=== PATIENT | male | born 1950 | race Caucasian/White ===

== ENCOUNTER → 2019-01-12 10:04 | Outpatient (CLI) | payer MEDICARE, SELFPAY ==
[2015-05-27 15:19] VITALS: BMI 35.8
[2019-01-12 11:41] LABS: BNP,B-Type NATRIURETIC PEPTIDE 27.7 pg/mL (0-100)
== END ==
PROVIDERS: Family Provider Family Medicine; PCP Family Medicine; Referring Provider Internal Medicine Pulmonary Disease; Visit Provider Internal Medicine Pulmonary Disease
DX: I27.20 Pulmonary hypertension, unspecified (principal)
CPT/HCPCS: 36415; 83880

== ENCOUNTER → 2019-05-12 14:57 | Outpatient (CLI) | payer MEDICARE, SELFPAY ==
[2015-05-27 15:19] VITALS: BMI 35.8
[2019-05-12 18:16] LABS: AST(SGOT) 20 U/L (15-37); Alanine Aminotransfer ALT/SGPT 28 U/L (16-61); Albumin, Serum 3.9 g/dL (3.2-5.0); Alkaline Phosphatase 116 U/L (45-117); Bilirubin, Direct 0.32 mg/dL (0.00-0.30); GGTP 19 U/L (15-85); Globulin 3.5 g/dL (2.2-4.2); Protein, Total 7.4 g/dL (6.4-8.2)
[2019-05-13 11:14] LABS: Hepatitis B Surface Antigen Non-Reactive (Nonreactive); Hepatitis C Antibody Non-Reactive (Nonreactive)
[2019-05-14 15:19] LABS: AFP, Tumor Marker 1.5 ng/mL (0.0-8.3); Anti-Smooth Muscle ABS 8 Units (0-19)
== END ==
PROVIDERS: PCP Student in an Organized Health Care Education/Training Program; Referring Provider Internal Medicine Gastroenterology; Visit Provider Internal Medicine Gastroenterology
DX: K75.9 Inflammatory liver disease, unspecified (principal); K76.0 Fatty (change of) liver, not elsewhere classified; E80.7 Disorder of bilirubin metabolism, unspecified
CPT/HCPCS: 36415; 80076; 82105; 82977; 83516; 86803; 87340

== ENCOUNTER → 2020-06-01 09:57 | Outpatient (CLI) | payer MEDICARE, SELFPAY ==
[2015-05-27 15:19] VITALS: BMI 35.8
[2020-06-01 11:09] LABS: BNP,B-Type NATRIURETIC PEPTIDE 62.5 pg/mL (0-100)
== END ==
PROVIDERS: PCP Student in an Organized Health Care Education/Training Program; Referring Provider Internal Medicine Pulmonary Disease; Visit Provider Internal Medicine Pulmonary Disease
DX: I27.0 Primary pulmonary hypertension (principal); G47.33 Obstructive sleep apnea (adult) (pediatric); I48.91 Unspecified atrial fibrillation
CPT/HCPCS: 36415; 83880

== ENCOUNTER 2021-05-30 09:22 | Outpatient (CLI) | payer MEDICARE, SELFPAY ==
[2021-05-30 10:48] LABS: BNP,B-Type NATRIURETIC PEPTIDE 52.4 pg/mL (0-100)
== END 2021-05-30 23:59 | disposition home or self-care (01) ==
LOC: LAB 09:26
PROVIDERS: PCP Student in an Organized Health Care Education/Training Program; Referring Provider Internal Medicine Pulmonary Disease; Visit Provider Internal Medicine Pulmonary Disease
DX: I27.20 Pulmonary hypertension, unspecified (principal); I48.91 Unspecified atrial fibrillation; Z79.899 Other long term (current) drug therapy
CPT/HCPCS: 36415; 83880

== ENCOUNTER 2021-11-27 09:08 | Outpatient (CLI) | payer MEDICARE, SELFPAY | END 2021-11-27 23:59 | disposition home or self-care (01) | PROVIDERS: PCP Student in an Organized Health Care Education/Training Program; Visit Provider Internal Medicine Pulmonary Disease | DX: I27.0 Primary pulmonary hypertension (principal); R06.00 Dyspnea, unspecified; Z79.899 Other long term (current) drug therapy | CPT/HCPCS: 36415; 83880 ==

== ENCOUNTER → 2022-02-20 | Outpatient (CLI) | payer MEDICARE, SELFPAY | END | disposition home or self-care (01) | LOC: LAB 09:24 | PROVIDERS: PCP Student in an Organized Health Care Education/Training Program; Referring Provider Internal Medicine Pulmonary Disease; Visit Provider Internal Medicine Pulmonary Disease | DX: R06.00 Dyspnea, unspecified (principal); E27.0 Other adrenocortical overactivity; J12.89 Other viral pneumonia | CPT/HCPCS: 36415; 83880 ==

== ENCOUNTER 2022-12-05 14:30 | Outpatient (RCR) | payer MEDICARE, SELFPAY ==
[2022-11-28 15:34] VITALS: BP 95/47; PULSE 73; RESP 16; TEMP 36.1; BMI 25.7
--- NOTE | 2022-11-29 16:43 | HP.PCM_ITS ---
History of Present Illness Date of Service: 11/28/22 Chief Complaint: Pressure injury R buttock History of Wound: Patient is a 72 y/o male who presents to the wound healing center today for evaluation and management of an area of pressure injury on his R buttock. He is diagnosed with Parkinson's and Lewy body dementia, he is accompanied to the appointment by his who helps with his care and to supplement his history. He was referred by his PCP who first noticed the area of concern at an office visit on 11/20. Patient reports the area is sometimes a little sore, but overall does not bother him too much. He has never had an pressure wounds before. He does spend much of his day sitting in a recliner, and he sleeps in the recliner as well. He also has incontinence, he wears incontinence briefs to manage this. They have not been treating the area with anything at home, just doing their best to keep it clean. He does not smoke. He does not have diabetes. [facility]LY [facility] Medical History Cerumen impaction Colon polyp Constipation Dizziness Elevated bilirubin Fatigue Leukocytosis Mediastinal lymphadenopathy Pulmonary emboli SOB (shortness of breath) Supratherapeutic INR Unexplained weight loss UTI (urinary tract infection) Home Medications pantoprazole 40 mg tablet,delayed release 40 mg PO DAILY 02/26/13 [History Last Taken 05/10/14 06:30] torsemide 10 mg tablet 10 mg PO QHS 02/26/13 [History Last Taken 05/09/14 11:00] amiodarone 200 mg tablet 200 mg PO DAILY 07/01/22 [History Last Taken Unknown] calcitriol 0.25 mcg capsule 0.25 mcg PO DAILY 07/01/22 [History Last Taken Unknown] carbidopa 25 mg-levodopa 100 mg tablet 2 tab PO TID 07/01/22 [History Last Taken Unknown] cholecalciferol (vitamin D3) 50 mcg (2,000 unit) capsule 50 mcg PO DAILY 0 07/01/22 [History Last Taken Unknown] ferrous sulfate 325 mg (65 mg iron) tablet 325 mg PO DAILY 07/01/22 [History Last Taken Unknown] fluoxetine 10 mg capsule 10 mg PO DAILY 07/01/22 [History Last Taken Unknown] fluoxetine 20 mg capsule 20 mg PO DAILY 07/01/22 [History Last Taken Unknown] memantine 5 mg tablet 10 mg PO BID 07/01/22 [History Last Taken Unknown] pimavanserin 34 mg capsule 34 mg PO DAILY 07/01/22 [History Last Taken Unknown] potassium chloride 10 mEq capsule,extended release 10 meq PO DAILY 07/01/22 [History Last Taken Unknown] pravastatin 40 mg tablet 40 mg PO DAILY 07/01/22 [History Last Taken Unknown] spironolactone 25 mg tablet 12.5 mg PO DAILY 07/01/22 [History Last Taken Unknown] tamsulosin 0.4 mg capsule 0.8 mg PO DAILY 07/01/22 [History Last Taken Unknown] topiramate 50 mg capsule,extended release 24 hr 25 mg PO DAILY 07/01/22 [History Last Taken Unknown] treprostinil diolamine 0.25 mg tablet,extended release 0.25 mg PO Q12H 07/01/22 [History Last Taken Unknown] warfarin 6 mg tablet (Jantoven) 4 mg PO DAILY 07/01/22 [History Last Taken Unknown] treprostinil diolamine 1 mg tablet,extended release (Orenitram) 3 mg PO TID 11/28/22 [History Last Taken Unknown] Allergy/AdvReac Type Severity Reaction Status Date / Time No Known Allergies Allergy Verified 11/28/22 15:46 Family History Mother Brain tumor Cancer Heart disease Thyroid disorder Sister Breast cancer Heart disease Father Heart disease Brother Heart disease Surgical History History of prostate surgery Hx of arthrodesis Hx of colonoscopy Hx of cystoscopy Hx of knee surgery Social History Smoking Status: Never smoker alcohol intake: never substance use type: does not use Vital Signs Vital Signs Vital Signs: Weight Weight: 200 lb Body Mass Index (BMI) 25.7 Physical Exam Const alert and no apparent distress Orientation / Consciousness: oriented to person and oriented to place HEENT normocephalic, head/scalp atraumatic, hearing grossly normal bilaterally, external ears normal and external nose normal Eyes EOMs intact bilaterally General Eye: normal appearance of both eyes Resp normal respiratory effort and no use of accessory muscles Effort and Inspection: able to speak in complete sentences; Negative for respiratory distress, labored, grunting, stridor or audible wheezes Cardio Rate: regular rate Rhythm: abnormal rhythm irregularly irregular Extremity no clubbing, cyanosis or edema Skin Wounds: wounds noted Wound Narrative: Small pressure ulceration to the R buttock limited to breakdown of the skin, very superficial. Some surrounding nonblanchable erythema, but no excessive warmth, tenderness, drainage, foul odor, fluctuance, induration. Psych Appearance: grossly normal Attitude: calm and engaged Activity / Motor Behavior: appropriate eye contact Speech: normal speech Mood & Affect: euthymic mood Debridement Note Debridement Note No debridement was completed: No debridement was completed today Post-Debridement Measurements and Additional Note: Post-Debridement Measurements/Treatment - Nurse 1 - General Ulcer Assessment Start: 11/28/22 15:31 Freq: Status: Active Protocol: ANNIE Activity Type Activity Date Activity User E-sign Co-sign Detail Recorded Client Recorded Date Recorded By Document 11/28/22 15:34 [facility] [id number] 11/28/22 15:41 [facility] 11/28/22 15:34 - Today's Visit Information Type of service Initial Visit Arrival Mode Ambulatory, Walker Transfer Assistance None Accompanied by Patient Identification Verified (Name & Yes ) Patient Requires Transmission-Based No Precautions Height and Weight Height 6 ft 2 in Weight 200 lb Weight in Pounds 200.0 lbs Weight Measurement Method Estimated by Patient Body Mass Index (BMI) 25.7 BMI Classification Overweight BSA - Karen 2.17 Vital Signs Temperature (97.8 F-99.1 F) 96.9 F L Temperature Source Temporal Pulse Rate (60-100) 73 Pulse Location Monitor Respiratory Rate (12-18) 16 Respiratory rate source Observation Oxygen Delivery Method Room Air Blood Pressure (90/60-120/80) 95/47 L Blood Pressure Mean 63 Source Monitor Position Sitting Blood Pressure Location Left Arm History Since Last Visit- (Skip if this is Patient's initial visit) Left Footwear Regular Shoe Right Footwear Regular Shoe Pain Scale: 0-10 Numeric Is Patient Pain Free? 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 Able to Read Yes Able to Write Yes Communication Tools None Right Hearing Abillity Normal Left Hearing Abillity Normal Visual Assistive Devices Glasses Teaching Assessment Preferences Verbal,Written, Audio/Visual, Demonstration Barriers to Learning None Readiness To Learn Excellent Willingness to Engage in Self Management High Activies Readiness to Engage in Self Management High Activities Anxiety Level Calm Cooperation Cooperative Perception Coherent Interest in Health Problem Asks Questions Education Importance Acknowledges Need Does Patient Smoke tobacco or other No substances Smoking Status Never smoker Is Patient Diabetic No Functional Assessment Recent Decline in Ability to Perform Denies Any Declines Culture/Faith/Marine Diesel Technician Cultural/Faith Needs that may affect No Treatment Plan Teaching: Wound Center *Welcome to the Wound Center -Person Taught Patient, Significant Other -Teaching Method Discussion -Response to teaching Verbalize understanding Welcome to the Wound Care Center Ukrainian NATTY - Nurse 1 - General Ulcer Measurement Start: 11/28/22 15:31 Freq: Status: Active Protocol: Activity Type Activity Date Activity User E-sign Co-sign Detail Recorded Client Recorded Date Recorded By Document 11/28/22 15:34 [facility] [id number] 11/28/22 15:41 [facility] 11/28/22 15:34 Wound Center Nurse 1 #1- R BUTTOCK -Combined with other wound No -Current Size (cm) - Length 0.1 -Current Size (cm) - Width 0.1 -Current Size (cm) - Depth 0.1 -Total Square Cm 0.01 -Date of Last Picture (Recall this 11/28/22 field) -Photo Taken Yes -Tunneling No -Undermining/Tunneling No -Circular Undermining No -Exudate Amt None Present -Wound Margin Flat & Intact -Granulation Amt Large (67-100%) -Granulation Quality [place] -Slough/Fibrin No -Necrosis Amt None Present (0 %) -Texture (Susie-wound Skin Appearance) Assessed, Scarring -Moisture (Susie-wound Skin Appearance) Assessed -Color (Susie-wound Skin Appearance) Assessed -Temperature (Susie-wound Skin No Abnormality Appearance) (Pt Warm) -Tenderness on Palpation (Susie-wound No Skin Appearance) -Ulcer Cleansing Rinsed/ Irrigated with Saline -Foul Odor after Cleansing No -Anesthetic Used 5% Lidocaine Gel NATTY - Nurse 2 - General Ulcer CM Notes Start: 11/28/22 15:31 Freq: Status: Active Protocol: Activity Type Activity Date Activity User E-sign Co-sign Detail Recorded Client Recorded Date Recorded By Document 11/28/22 17:21 PL [id number] 11/28/22 17:22 PL 11/28/22 17:21 Pain Scale: 0-10 Numeric Is Patient Pain Free? Yes WC - Nurse 3 - General Ulcer D/C NN Start: 11/28/22 15:31 Freq: Status: Active Protocol: Activity Type Activity Date Activity User E-sign Co-sign Detail Recorded Client Recorded Date Recorded By Document 11/28/22 16:12 ARACELIS [id number] 11/28/22 16:13 ARACELIS 11/28/22 16:12 Wound Care Center Nurse 3 #1- R BUTTOCK -Ulcer Cleansing Rinsed/ Irrigated with Saline -Primary Dressing Applied Mepilex Border, Promogran Yuliya Matter -Mepilex Border 1 -Promogran Yuliya Matter 1 Pain Scale: 0-10 Numeric Is Patient Pain Free? Yes WC - Visit Discharge Discharge Condition Stable Ambulatory Status Walker Transportation Private Auto Medication Reconcilliation completed & No provided to patient/care provider Clinical Summary of Care Provided Yes Charges/Coding Visit Charges Office Visits / Consults: 87444 OV L3 New Assessment/Plan Assessment/Plan (1) Pressure ulcer of right buttock, stage 2: CODE(S): L89.312 - Pressure ulcer of right buttock, stage 2 PLAN: Patient has a small, superficial pressure ulceration limited to breakdown of the skin. There was no significant slough or devitalized tissue so no debridement was performed today. There were no signs/symptoms concerning for infection on exam or history today. Will apply Yuliya to the wound base, cover with foam border dressing. With dressing changes, wash the area with gentle antibacterial soap and water and pat to dry. Change the dressing at least once daily, more often as needed if the dressing becomes soiled. We discussed the importance of offloading measures in healing this current pressure injury and preventing this from recurring in the future. I advise that they obtain an egg-crate or other foam cushion to place in his recliner. I also advise him to try to shift positions and/or stand up/ambulate at least once every hour. Follow-up in 1 week or sooner as needed.
[2022-12-05 14:35] VITALS: BP 94/53; PULSE 52; RESP 18; TEMP 35.9; BMI 25.7
--- NOTE | 2022-12-06 08:58 | PN.PCM_ITS ---
History of Present Illness Date of Service: 12/06/22 Chief Complaint: Pressure injury R buttock History of Wound: Patient is a 72 y/o male who presents to the wound healing center today for evaluation and management of an area of pressure injury on his R buttock. He is diagnosed with Parkinson's and Lewy body dementia, he is accompanied to the appointment by his who helps with his care and to supplement his history. He was referred by his PCP who first noticed the area of concern at an office visit on 11/20. Patient reports the area is sometimes a little sore, but overall does not bother him too much. He has never had an pressure wounds before. He does spend much of his day sitting in a recliner, and he sleeps in the recliner as well. He also has incontinence, he wears incontinence briefs to manage this. They have not been treating the area with anything at home, just doing their best to keep it clean. He does not smoke. He does not have diabetes. Subjective Subjective has been changing dressings as directed, reports no issues and no new open areas. They did obtain from foam pads and are using in his chair to help with offloading. No complaints today. Denies N/V, F/C. The wound is healed today. Objective Data Objective Data Vital Signs: Vital Signs Temp Pulse Resp BP O2 Del Method 96.7 F L 52 L 18 94/53 L Room Air 12/05/22 14:35 12/05/22 14:35 12/05/22 14:35 12/05/22 14:35 12/05/22 14:35 Oxygen Delivery Method Room Air Weight: 200 lb Body Mass Index (BMI) 25.7 Charges/Coding Visit Charges Office Visits / Consults: 17038 OV L3 Est Physical Exam Const alert and no apparent distress Orientation / Consciousness: oriented to person and oriented to place Resp normal respiratory effort and no use of accessory muscles Effort and Inspection: able to speak in complete sentences Cardio Rate: regular rate Rhythm: abnormal rhythm irregularly irregular Skin Wounds: wounds noted Wound Narrative: Prior R buttock ulceration is healed, fully epithelialized. There is some redness in the general area, appears secondary to moisture retention/irritation. No other wounds or areas with apparent pressure injury noted. Psych Attitude: calm and engaged Debridement Note Debridement Note No debridement was completed: No debridement was completed today Post-Debridement Measurements and Additional Note: Post-Debridement Measurements/Treatment - Nurse 1 - General Ulcer Assessment Start: 11/28/22 15:31 Freq: Status: Active Protocol: ANNIE Activity Type Activity Date Activity User E-sign Co-sign Detail Recorded Client Recorded Date Recorded By Document 11/28/22 15:34 [facility] [id number] 11/28/22 15:41 [facility] 11/28/22 15:34 WC - Today's Visit Information Type of service Initial Visit Arrival Mode Ambulatory, Walker Transfer Assistance None Accompanied by Patient Identification Verified (Name & Yes ) Patient Requires Transmission-Based No Precautions Height and Weight Height 6 ft 2 in Weight 200 lb Weight in Pounds 200.0 lbs Weight Measurement Method Estimated by Patient Body Mass Index (BMI) 25.7 BMI Classification Overweight BSA - Karen 2.17 Vital Signs Temperature (97.8 F-99.1 F) 96.9 F L Temperature Source Temporal Pulse Rate (60-100) 73 Pulse Location Monitor Respiratory Rate (12-18) 16 Respiratory rate source Observation Oxygen Delivery Method Room Air Blood Pressure (90/60-120/80) 95/47 L Blood Pressure Mean 63 Source Monitor Position Sitting Blood Pressure Location Left Arm History Since Last Visit- (Skip if this is Patient's initial visit) Left Footwear Regular Shoe Right Footwear Regular Shoe Pain Scale: 0-10 Numeric Is Patient Pain Free? Yes Communication Assessment Preferred language [place] Insurance Operations Rep Required No Able to Read Yes Able to Write Yes Communication Tools None Right Hearing Abillity Normal Left Hearing Abillity Normal Visual Assistive Devices Glasses Teaching Assessment Preferences Verbal,Written, Audio/Visual, Demonstration Barriers to Learning None Readiness To Learn Excellent Willingness to Engage in Self Management High Activies Readiness to Engage in Self Management High Activities Anxiety Level Calm Cooperation Cooperative Perception Coherent Interest in Health Problem Asks Questions Education Importance Acknowledges Need Does Patient Smoke tobacco or other No substances Smoking Status Never smoker Is Patient Diabetic No Functional Assessment Recent Decline in Ability to Perform Denies Any 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 Cultural/Synagogue Needs that may affect No Treatment Plan Teaching: Wound Center *Welcome to the Wound Center -Person Taught Patient, Significant Other -Teaching Method Discussion -Response to teaching Verbalize understanding Welcome to the Wound Care Center English LUZ - Nurse 1 - General Ulcer Measurement Start: 11/28/22 15:31 Freq: Status: Active Protocol: Activity Type Activity Date Activity User E-sign Co-sign Detail Recorded Client Recorded Date Recorded By Document 11/28/22 15:34 [facility] [id number] 11/28/22 15:41 [facility] 11/28/22 15:34 Wound Center Nurse 1 #1- R BUTTOCK -Combined with other wound No -Current Size (cm) - Length 0.1 -Current Size (cm) - Width 0.1 -Current Size (cm) - Depth 0.1 -Total Square Cm 0.01 -Date of Last Picture (Recall this 11/28/22 field) -Photo Taken Yes -Tunneling No -Undermining/Tunneling No -Circular Undermining No -Exudate Amt None Present -Wound Margin Flat & Intact -Granulation Amt Large (67-100%) -Granulation Quality [place] -Slough/Fibrin No -Necrosis Amt None Present (0 %) -Texture (Susie-wound Skin Appearance) Assessed, Scarring -Moisture (Susie-wound Skin Appearance) Assessed -Color (Susie-wound Skin Appearance) Assessed -Temperature (Susie-wound Skin No Abnormality Appearance) (Pt Warm) -Tenderness on Palpation (Susie-wound No Skin Appearance) -Ulcer Cleansing Rinsed/ Irrigated with Saline -Foul Odor after Cleansing No -Anesthetic Used 5% Lidocaine Gel WC - Nurse 2 - General Ulcer CM Notes Start: 11/28/22 15:31 Freq: Status: Active Protocol: Activity Type Activity Date Activity User E-sign Co-sign Detail Recorded Client Recorded Date Recorded By Document 11/28/22 17:21 PL [id number] 11/28/22 17:22 PL 11/28/22 17:21 Pain Scale: 0-10 Numeric Is Patient Pain Free? Yes - Nurse 3 - General Ulcer D/C NN Start: 11/28/22 15:31 Freq: Status: Active Protocol: Activity Type Activity Date Activity User E-sign Co-sign Detail Recorded Client Recorded Date Recorded By Document 11/28/22 16:12 [id number] 11/28/22 16:13 11/28/22 16:12 Wound Care Center Nurse 3 #1- R BUTTOCK -Ulcer Cleansing Rinsed/ Irrigated with Saline -Primary Dressing Applied Mepilex Border, Promogran Yuliya Matter -Mepilex Border 1 -Promogran Yuliya Matter 1 Pain Scale: 0-10 Numeric Is Patient Pain Free? Yes WC - Visit Discharge Discharge Condition Stable Ambulatory Status Walker Transportation Private Auto Medication Reconcilliation completed & No provided to patient/care provider Clinical Summary of Care Provided Yes Assessment/Plan Assessment/Plan (1) Pressure ulcer of right buttock, stage 2: CODE(S): L89.312 - Pressure ulcer of right buttock, stage 2 PLAN: The wound is healed today. I do advise him to continue with offloading measures to prevent recurrence. I advise A&D ointment to the current areas of irritant dermatitis. They were advised to contact the wound healing center should any new wounds arise. He is discharged from the wound healing center today. Return as needed.
== END 2022-12-05 16:21 | disposition home or self-care (01) ==
LOC: WC 14:30
PROVIDERS: PCP Student in an Organized Health Care Education/Training Program; Referring Provider Student in an Organized Health Care Education/Training Program; Visit Provider Physician Assistant
DX: L89.312 Pressure ulcer of right buttock, stage 2 (principal); G20 Parkinson's disease; F02.80 Dementia in other diseases classified elsewhere, unspecified severity, without behavioral disturbance, psychotic disturbance, mood disturbance, and anxiety; R32 Unspecified urinary incontinence; Z79.01 Long term (current) use of anticoagulants; Z79.899 Other long term (current) drug therapy
CPT/HCPCS: 99213; G0463

== ENCOUNTER → 2023-03-05 | Outpatient (CLI) | payer MEDICARE, SELFPAY ==
[2023-03-05 11:48] LABS: BNP,B-Type NATRIURETIC PEPTIDE 130.2 pg/mL (0-100)
== END | disposition home or self-care (01) ==
LOC: LAB 10:55
PROVIDERS: PCP Student in an Organized Health Care Education/Training Program; Referring Provider Internal Medicine Pulmonary Disease; Visit Provider Internal Medicine Pulmonary Disease
DX: I27.20 Pulmonary hypertension, unspecified (principal)
CPT/HCPCS: 36415; 83880